=== PATIENT | female | born 1945 | race Caucasian/White ===

== ENCOUNTER → 2018-04-01 08:28 | Oncology outpatient (ONC) | payer MEDICARE, OTHER, SELFPAY ==
[2018-04-01 09:18] VITALS: BP 146/73; PULSE 66; RESP 20; TEMP 36.4; O2SAT 98
--- NOTE | 2018-04-01 09:19 | ONC.CONS ---
History of Present Illness - Data of Consult Patient: new to practice Consult date: 04/01/18 Requesting Physician: Eboni Dobson MD Primary Care Provider: MD Meryl - Consult Narrative Reason for consult: Anemia of CKD, and MGUS (IgG Lamda) Narrative: Julianna Graham is a 72 year old female with anemia of CKD and MGUS. She recently moved from [facility] to an [facility]. She was followed previously by Dr. Eboni Dobson who referred the patient to [facility] for for continued care. Patient has a known history of chronic kidney disease stage 3 with associated chronic anemia. Patient said that she has been getting Procrit injection for the past 5 years approximately and she is getting about 57462 to [address] units every month. Patient also has a history of monoclonal gammopathy of unknown significance diagnosed after bone marrow aspiration and biopsy on 12/22/2007. The bone marrow aspiration and biopsy showed 5% lambda light chain restricted plasma cells involving a normal cellular 30% bone marrow with normal hematopoiesis and normal cytogenetics. Clinically, patient reported low energy level and she said the Procrit is quite helpful. He is complaining a little neck and lower back pain. He is having epidural steroid injection for the back pain about every 3-4 months. Patient has acid reflux symptoms including burning and pain in the upper chest and is using ranitidine and Nexium with good symptomatic control. Patient denies any abdominal pain diarrhea or constipation. CC: Zeke Dobosn MD Patient reports pain?: No Home Medications and Allergies Home Medications Medication Instructions Recorded Confirmed Type acetaminophen [Tylenol] 500 mg PO Q6H PRN 04/01/18 04/01/18 History albuterol sulfate 2 puff INHALATION Q6H PRN 04/01/18 04/01/18 History amlodipine 5 mg PO DAILY 04/01/18 04/01/18 History aspirin 81 mg PO DAILY 04/01/18 04/01/18 History calcium carbonate [Calcium 600] 04/01/18 History carvedilol 25 mg PO BID 04/01/18 04/01/18 History cetirizine 10 mg PO BID 04/01/18 04/01/18 History Allergies Allergy/AdvReac Type Severity Reaction Status Date / Time cephalexin [CEPHALEXIN] Allergy Mild Unverified 08/04/17 12:32 diphenhydramine Allergy Unknown Unverified 08/04/17 12:32 [DIPHENHYDRAMINE] doxycycline [DOXYCYCLINE] Allergy Unknown Unverified 08/04/17 12:32 Rmhlmqz-Ymm-Gal Reductase Allergy Unknown Unverified 08/04/17 12:32 Inhibitor [[id number]-[id number]-WPK REDUCTASE INHIBITOR] Medical History - Medical, Surgical, Family History Medical History: Medical History (Last Updated 04/01/18 @ 09:44 by Zeke Dobson MD) Anemia in chronic kidney disease (CKD) CKD (chronic kidney disease) stage 3, GFR 30-59 ml/min History of hysterectomy Hyperlipidemia Hypertension MGUS (monoclonal gammopathy of unknown significance) Rotator cuff arthropathy of right shoulder Family History: Family History (Last Updated 04/01/18 @ 09:45 by Zeke Dobson MD) Father Bone cancer - Social History Smoking Status: Former smoker Quit Date: 04/17/08 Substance Use Type: does not use Alcohol Intake: never Review of Systems All systems PM: reviewed and no additional remarkable complaints except as stated Exam Vital signs: Last Vital Signs Temp 97.5 F L 04/01/18 09:18 Pulse 66 04/01/18 09:18 Resp 20 04/01/18 09:18 BP 146/73 H 04/01/18 09:18 Pulse Ox 98 04/01/18 09:18 ECOG 1 Narrative: Constitutional: WDWN, NAD, average body habitus, well groomed, pleasant and cooperative. HEENT: NCAT, EOMI, PERRLA, anicteric sclera, no hearing difficulty; Oral mucus membrane moist and without ulcers. Neck: Supple, symmetrical, and tracheal midline; No palpable thyromegaly and no palpable lymph nodes. Respiratory: No use of accessory muscles. Clear to auscultation, and no wheezes or rales or rubs. Cardiovascular: Regular rate and rhythm, S1 and S2 normal, no murmurs gallops or rubs. No JVD. No pitting edema of lower extremities. Abdomen: Soft, nontender, non-distended, bowel sounds normal, no palpable organomegaly, no hernia, no palpable masses. Lower extremities: No palpable pedal edema. Lymphatic: no palpable lymph nodes in the neck, axillae, or groins. Musculoskeletal: normal gait and station, no clubbing, no cyanosis, no pitting edema. Skin: no rashes, no ulcers, no petechiae Neurological: Awake and alert and oriented x3. CN II-XII grossly intact. No focal motor or sensory deficit. Psychiatric: Good judgment, good insight, normal affect, normal thought process, cooperative, no depression, no anxiety. Results - Labs Reviewed. Assessment and Plan (1) Anemia in chronic kidney disease (CKD) Assessment: I talked with the patient that I will continue the Procrit injection. Her next injection is due on 04/18/2018. I also touched base with the patient about the box warning of the injection with Procrit. I especially explained to her that if the hemoglobin level is kept too high, the injection with Procrit is associated with increased mortality, increased risk of venous thromboembolism and increased risk of progression of underlying malignancy. Patient voiced understanding and she said that nothing is without any side effects. I believe these must have already been discussed with the patient before the initiation of the treatment with Procrit. Plan: 1. Continue Procrit 30K-40K subQ monthly, goal is HGB 10-11 Next due 04/18/2018, CBC/D, CMP, MM panel, and Procrit 30K subQ if HGB < 10 2. RTC 05/16/2018 for follow up visit, CBC, and ? procrit. (2) MGUS (monoclonal gammopathy of unknown significance) Problem details: MGUS, diagnosed after BMA/Bx on 12/22/2007: 5% lambda light chain restricted plasma cells involving a normal cellular 30% bone marrow with normal hematopoiesis and normal cytogenetics. Assessment and plan: I talked with the patient that I am planning to continue to monitor the serum protein electrophoresis and serum free light chain about every 3 months. Depending on the trend of change. May consider bone marrow aspiration biopsy. (3) CKD (chronic kidney disease) stage 3, GFR 30-59 ml/min Assessment and Plan: Will refer to mold yard worker in [facility] to establish care.
--- NOTE | 2018-04-01 09:25 | P.CONONC_ITS ---
History of Present Illness - Data of Consult Patient: new to practice Consult date: 04/01/18 Requesting Physician: Eboni Dobson MD Primary Care Provider: MD Meryl - Consult Narrative Reason for consult: Anemia of CKD, and MGUS (IgG Lamda) Narrative: Julianna Graham is a 72 year old female with anemia of CKD and MGUS. She recently moved from [facility] to an [facility]. She was followed previously by Dr. Eboni Dobson who referred the patient to [facility] for for continued care. Patient has a known history of chronic kidney disease stage 3 with associated chronic anemia. Patient said that she has been getting Procrit injection for the past 5 years approximately and she is getting about 67911 to [address]94 units every month. Patient also has a history of monoclonal gammopathy of unknown significance diagnosed after bone marrow aspiration and biopsy on 12/22/2007. The bone marrow aspiration and biopsy showed 5% lambda light chain restricted plasma cells involving a normal cellular 30% bone marrow with normal hematopoiesis and normal cytogenetics. Clinically, patient reported low energy level and she said the Procrit is quite helpful. He is complaining a little neck and lower back pain. He is having epidural steroid injection for the back pain about every 3-4 months. Patient has acid reflux symptoms including burning and pain in the upper chest and is using ranitidine and Nexium with good symptomatic control. Patient denies any abdominal pain diarrhea or constipation. CC: Zeke Dobson MD Patient reports pain?: No Home Medications and Allergies Home Medications Medication Instructions Recorded Confirmed Type acetaminophen [Tylenol] 500 mg PO Q6H PRN 04/01/18 04/01/18 History albuterol sulfate 2 puff INHALATION Q6H PRN 04/01/18 04/01/18 History amlodipine 5 mg PO DAILY 04/01/18 04/01/18 History aspirin 81 mg PO DAILY 04/01/18 04/01/18 History calcium carbonate [Calcium 600] 04/01/18 History carvedilol 25 mg PO BID 04/01/18 04/01/18 History cetirizine 10 mg PO BID 04/01/18 04/01/18 History Allergies Allergy/AdvReac Type Severity Reaction Status Date / Time cephalexin [CEPHALEXIN] Allergy Mild Unverified 08/04/17 12:32 diphenhydramine Allergy Unknown Unverified 08/04/17 12:32 [DIPHENHYDRAMINE] doxycycline [DOXYCYCLINE] Allergy Unknown Unverified 08/04/17 12:32 Aomxgdy-Btr-Kvx Reductase Allergy Unknown Unverified 08/04/17 12:32 Inhibitor [TNUZNVO-KOI-EIL REDUCTASE INHIBITOR] Medical History - Medical, Surgical, Family History Medical History: Medical History (Last Updated 04/01/18 @ 09:44 by Zeke Dobson MD) Anemia in chronic kidney disease (CKD) CKD (chronic kidney disease) stage 3, GFR 30-59 ml/min History of hysterectomy Hyperlipidemia Hypertension MGUS (monoclonal gammopathy of unknown significance) Rotator cuff arthropathy of right shoulder Family History: Family History (Last Updated 04/01/18 @ 09:45 by Zeke Dobson MD) Father Bone cancer - Social History Smoking Status: Former smoker Quit Date: 04/17/08 Substance Use Type: does not use Alcohol Intake: never Review of Systems All systems PM: reviewed and no additional remarkable complaints except as stated Exam Vital signs: Last Vital Signs Temp 97.5 F L 04/01/18 09:18 Pulse 66 04/01/18 09:18 Resp 20 04/01/18 09:18 BP 146/73 H 04/01/18 09:18 Pulse Ox 98 04/01/18 09:18 ECOG 1 Narrative: Constitutional: WDWN, NAD, average body habitus, well groomed, pleasant and cooperative. HEENT: NCAT, EOMI, PERRLA, anicteric sclera, no hearing difficulty; Oral mucus membrane moist and without ulcers. Neck: Supple, symmetrical, and tracheal midline; No palpable thyromegaly and no palpable lymph nodes. Respiratory: No use of accessory muscles. Clear to auscultation, and no wheezes or rales or rubs. Cardiovascular: Regular rate and rhythm, S1 and S2 normal, no murmurs gallops or rubs. No JVD. No pitting edema of lower extremities. Abdomen: Soft, nontender, non-distended, bowel sounds normal, no palpable organomegaly, no hernia, no palpable masses. Lower extremities: No palpable pedal edema. Lymphatic: no palpable lymph nodes in the neck, axillae, or groins. Musculoskeletal: normal gait and station, no clubbing, no cyanosis, no pitting edema. Skin: no rashes, no ulcers, no petechiae Neurological: Awake and alert and oriented x3. CN II-XII grossly intact. No focal motor or sensory deficit. Psychiatric: Good judgment, good insight, normal affect, normal thought process , cooperative, no depression, no anxiety. Results - Labs Reviewed. Assessment and Plan (1) Anemia in chronic kidney disease (CKD) Assessment: I talked with the patient that I will continue the Procrit injection. Her next injection is due on 04/18/2018. I also touched base with the patient about the box warning of the injection with Procrit. I especially explained to her that if the hemoglobin level is kept too high, the injection with Procrit is associated with increased mortality, increased risk of venous thromboembolism and increased risk of progression of underlying malignancy. Patient voiced understanding and she said that nothing is without any side effects. I believe these must have already been discussed with the patient before the initiation of the treatment with Procrit. Plan: 1. Continue Procrit 30K-40K subQ monthly, goal is HGB 10-11 Next due 04/18/2018, CBC/D, CMP, MM panel, and Procrit 30K subQ if HGB < 10 2. RTC 05/16/2018 for follow up visit, CBC, and ? procrit. (2) MGUS (monoclonal gammopathy of unknown significance) Problem details: MGUS, diagnosed after BMA/Bx on 12/22/2007: 5% lambda light chain restricted plasma cells involving a normal cellular 30% bone marrow with normal hematopoiesis and normal cytogenetics. Assessment and plan: I talked with the patient that I am planning to continue to monitor the serum protein electrophoresis and serum free light chain about every 3 months. Depending on the trend of change. May consider bone marrow aspiration biopsy. (3) CKD (chronic kidney disease) stage 3, GFR 30-59 ml/min Assessment and Plan: Will refer to college basketball coach in [facility] to establish care.
== END ==
PROVIDERS: Visit Provider Internal Medicine Hematology & Oncology
DX: I12.9 Hypertensive chronic kidney disease with stage 1 through stage 4 chronic kidney disease, or unspecified chronic kidney disease (principal); N18.3 Chronic kidney disease, stage 3 (moderate); D63.1 Anemia in chronic kidney disease; D47.2 Monoclonal gammopathy; Z87.891 Personal history of nicotine dependence
CPT/HCPCS: 99204; 99214

== ENCOUNTER → 2018-04-18 09:00 | Outpatient (CLI) | payer MEDICARE, OTHER, SELFPAY ==
[2018-04-18 09:27] LABS: Add Manual Diff / Slide Review NO; Basophils Percent Auto 0.6 % (0-2); Eosinophils Percent Auto 2.8 % (2-4); Hematocrit 30.6 % (36-46); Hemoglobin 10.6 g/dL (12.0-16.0); Lymphocytes Percent Auto 19.5 % (25-40); Mean Corpuscular HGB Conc 34.5 % (30-36); Mean Corpuscular Hemoglobin 32.9 PG (26-34); Mean Corpuscular Volume 95.6 fL (80-100); Monocytes Percent Auto 7.5 % (3-14); Neutrophils Absolute Auto 5100 /uL (1500-7000); Neutrophils Percent Auto 69.6 % (50-75); Platelet Count 374 X10^3/uL (150-400); Red Cell Distribution Width 14.8 % (11.6-14.8); White Blood Cell Count 7.3 X10^3/uL (4.5-11.0)
[2018-04-18 09:38] LABS: Alanine Aminotransferase 14 IU/L (9-52); Albumin 4.5 g/dL (3.5-5.0); Albumin Globulin Ratio 1.2 (1.0-2.8); Alkaline Phosphatase 53 U/L (38-126); Aspartate Aminotransferase 23 IU/L (14-36); BUN Creatinine Ratio 20.4 (6-22); Bilirubin Total 0.3 mg/dL (0.2-1.3); Blood Urea Nitrogen 49 mg/dL (7-17); Calcium 9.9 mg/dL (8.4-10.2); Carbon Dioxide 25 mmol/L (22-32); Chloride 101 mmol/L (98-107); Estimated Glomerular Filt Rate 19.7 mL/min (>60); Globulin 3.7 g/dL (1.7-4.1); Glucose 113 mg/dL (80-110); HEMOLYSIS < 15 (0-50); Lactate Dehydrogenase 415 U/L (313-618); Potassium 3.4 mmol/L (3.4-5.1); Sodium 144 mmol/L (137-145); Total Protein 8.2 g/dL (6.3-8.2)
[2018-04-21 14:13] LABS: Free Kappa/ Lambda Ratio 0.09 (0.26-1.65); Free Lambda 376.9 mg/L (5.7-26.3)
[2018-04-21 15:22] LABS: Immunoglobulin A 86 mg/dL (81-463); Immunoglobulin G, Quantitative 1367 mg/dL (694-1618); Immunoglobulin M, Quantitative 22 mg/dL (48-271)
[2018-04-21 16:58] LABS: Beta-2-Microglobulin 7.99 mg/L (< 2.52)
[2018-04-22 10:07] LABS: Abnormal Protein Band 1 0.7 g/dL (NONE DETECTED); Albumin 4.2 g/dL (3.8-4.8); Alpha 1 Globulin 0.3 g/dL (0.2-0.3); Beta 1 Globulin 0.3 g/dL (0.4-0.6); Gamma Globulin 1.2 g/dL (0.8-1.7); Protein, Total 7.3 g/dL (6.1-8.1)
== END ==
PROVIDERS: Family Provider Nurse Practitioner Family; PCP Nurse Practitioner Family; Visit Provider Internal Medicine Hematology & Oncology
DX: D47.2 Monoclonal gammopathy (principal); N18.9 Chronic kidney disease, unspecified; D63.1 Anemia in chronic kidney disease
CPT/HCPCS: 36415; 80053; 82232; 82784; 83615; 83883; 84155; 84165; 85025

== ENCOUNTER 2018-04-21 15:14 | Emergency (ER) | payer MEDICARE, OTHER, SELFPAY ==
[2018-04-21 15:15] VITALS: BP 157/52; PULSE 66; RESP 14; TEMP 36.5; O2SAT 99; BMI 30.2
--- NOTE | 2018-04-21 15:33 | RT ---
EKG performed at [address] Negrete
--- NOTE | 2018-04-21 15:37 | DI.RAD.S_ITS ---
PROCEDURE: XR CHEST 1V INDICATIONS: chest pain TECHNIQUE: One view of the chest was acquired. COMPARISON: None. FINDINGS: Surgical changes and devices: None. Lungs and pleura: No pleural effusions or pneumothorax. Mild pulmonary vascular congestion is seen. No focal infiltrate. Mediastinum: Mediastinal contours appear normal. Heart size is enlarged. Bones and chest wall: No suspicious bony lesions. Overlying soft tissues appear unremarkable. IMPRESSION: Mild congestion. No focal infiltrate. Dictated by: Americo Hobson M.D. on 04/21/2018 at 15:48 Approved by: Americo Hobson M.D. on 04/21/2018 at 15:48
[2018-04-21 15:54] VITALS: BP 151/48; PULSE 67; RESP 14; O2SAT 98
[2018-04-21 15:58] LABS: Add Manual Diff / Slide Review NO; Basophils Percent Auto 0.8 % (0-2); Eosinophils Percent Auto 2.1 % (2-4); Hematocrit 27.7 % (36-46); Hemoglobin 9.5 g/dL (12.0-16.0); Lymphocytes Percent Auto 20.5 % (25-40); Mean Corpuscular HGB Conc 34.1 % (30-36); Mean Corpuscular Hemoglobin 32.5 PG (26-34); Mean Corpuscular Volume 95.3 fL (80-100); Monocytes Percent Auto 8.4 % (3-14); Neutrophils Absolute Auto 5300 /uL (1500-7000); Neutrophils Percent Auto 68.2 % (50-75); Platelet Count 340 X10^3/uL (150-400); Red Blood Cell Count 2.91 X10^6/uL (4.0-5.2); Red Cell Distribution Width 14.4 % (11.6-14.8); White Blood Cell Count 7.8 X10^3/uL (4.5-11.0)
[2018-04-21 16:06] LABS: Prothrombin Time 11.5 SECONDS (10.1-12.7)
[2018-04-21 16:08] LABS: PTT Partial Thromboplastin Tim 28 SECONDS (26.4-36.2)
[2018-04-21 16:10] LABS: Alanine Aminotransferase 17 IU/L (9-52); Albumin 4.3 g/dL (3.5-5.0); Albumin Globulin Ratio 1.3 (1.0-2.8); Alkaline Phosphatase 60 U/L (38-126); Aspartate Aminotransferase 23 IU/L (14-36); BUN Creatinine Ratio 21.3 (6-22); Bilirubin Total 0.2 mg/dL (0.2-1.3); Blood Urea Nitrogen 51 mg/dL (7-17); Calcium 10.3 mg/dL (8.4-10.2); Carbon Dioxide 26 mmol/L (22-32); Chloride 101 mmol/L (98-107); Creatine Kinase 35 U/L (30-135); Estimated Glomerular Filt Rate 19.7 mL/min (>60); Globulin 3.4 g/dL (1.7-4.1); Glucose 105 mg/dL (80-110); HEMOLYSIS < 15 (0-50); Lipase 103 U/L (23-300); Potassium 3.6 mmol/L (3.4-5.1); Sodium 141 mmol/L (137-145); Total Protein 7.7 g/dL (6.3-8.2)
[2018-04-21 16:22] LABS: Troponin I < 0.012 ng/mL (0.01-0.034)
--- NOTE | 2018-04-21 16:23 | DI.US.S_ITS ---
PROCEDURE: US PERIPH VENOUS LOW EXTREM LT INDICATIONS: left leg pain TECHNIQUE: Real-time imaging, as well as color and pulse Doppler interrogation, were performed of the lower extremity deep veins from the inguinal ligament to the popliteal fossa. COMPARISON: None. FINDINGS: The deep veins are normally compressible, and free of intraluminal thrombus. Color and pulse Doppler demonstrate normal phasic intraluminal flow. There is normal augmentation response to distal compression maneuver. IMPRESSION: 1. No evidence of deep venous thrombosis in the left lower extremity. Dictated by: James Comer M.D. on 04/21/2018 at 16:23 Approved by: James Comer M.D. on 04/21/2018 at 16:23
--- NOTE | 2018-04-21 16:25 | ED_ITS ---
HPI - Neck Pain/Injury General Chief Complaint: Neck Pain/Injury Stated Complaint: had abnormal EKG, neck hurts, possible heart attac Time Seen by Provider: 04/21/18 15:55 Source: patient, family () and other (Walk-in clinic) Mode of arrival: wheelchair Limitations: no limitations History of Present Illness HPI Narrative: This a 72-year-old female sent from the walk-in clinic for complaint of left neck pain. Patient states it is the left side of her neck that is all the time, does seems to be unrelated to exertion and she states she has been using the phone with packing in the been moving so she thinks it is related to that. She also mentions that her throat feels tight when she goes for a walker tries to her ear and exert herself. She states that she did have a heart attack years ago she had a catheter but no stents she thinks it was 5 or 6 years ago which she is unclear about the exact timing. She takes some medications but not all these medications because some of them did make her feel well. By her description it sounds like she had myalgias and stopped her statin. She still taking some medications for blood pressure twice daily she thinks carvedilol and amlodipine she is not sure if she is taking anything else. She also mentions aspirin 81 mg which she has been taking for about a decade. She is not really having any shortness of breath but she states it bills in her chest to bleed. Um the chest pain is more of a burning sensation in the mid chest. She does get any diaphoresis or clammy, no nausea no vomiting she sometimes has some belching. She has had some mild constipation but is having bowel movements she has had some mild edema in her lower extremities. She states her left leg has been hurting, she has a history of sciatica with pain radiating down the leg but this feels different it is typically in her buttock and back this is going farther down. She states that she has had injections in the past she has tried ibuprofen and Tylenol with minimal improvement. She states she can do stress test anymore nor can she do chemical stress test anymore because of difficulty with breathing. She has a history significant her coronary artery disease, back pain/sciatica pain. Hypertension, dyslipidemia she denies any diabetes. She is also being treated for multiple myeloma although this was not sure to later in her stay. Related Data Home Medications Medication Instructions Recorded Confirmed acetaminophen [Tylenol] 500 mg PO Q6H PRN 04/01/18 04/21/18 albuterol sulfate 2 puff INHALATION Q6H PRN 04/01/18 04/21/18 amlodipine 5 mg PO DAILY 04/01/18 04/21/18 ascorbic acid (vitamin C) [Vitamin 1,000 mg PO DAILY 04/01/18 04/21/18 C] aspirin 81 mg PO DAILY 04/01/18 04/21/18 calcium carbonate [Calcium 600] 04/01/18 04/21/18 carvedilol 25 mg PO BID 04/01/18 04/21/18 cetirizine 10 mg PO BID 04/01/18 04/21/18 chlorthalidone 12.5 mg PO DAILY 04/01/18 04/21/18 cyanocobalamin (vitamin B-12) 5,000 mcg SUBLINGUAL DAILY 04/01/18 04/21/18 [Vitamin B-12] esomeprazole magnesium [Nexium 20 mg PO DAILY 04/01/18 04/21/18 24HR] ferrous gluconate 324 mg PO DAILY 04/01/18 04/21/18 fluticasone [Flonase Allergy 04/01/18 04/21/18 Relief] hydralazine 100 mg PO BID 04/01/18 04/21/18 multivitamin 1 tab PO DAILY 04/01/18 04/21/18 ranitidine HCl [Zantac] 150 mg PO BID 04/01/18 04/21/18 tizanidine 2 mg PO TID PRN 04/01/18 04/21/18 triamcinolone acetonide 1 applic TOPICAL BID 04/01/18 04/21/18 Allergies Allergy/AdvReac Type Severity Reaction Status Date / Time Sulfa (Sulfonamide Allergy Severe Anaphylaxis Verified 04/21/18 15:23 Antibiotics) oyster extract Allergy Intermediate Hives Verified 04/21/18 15:26 salicylates Allergy Intermediate Vomiting Verified 04/21/18 15:26 shellfish derived Allergy Intermediate Vomiting Verified 04/21/18 15:26 cefazolin Allergy Mild Verified 04/21/18 15:26 cephalexin [CEPHALEXIN] Allergy Mild Verified 04/21/18 15:26 Cephalosporins Allergy Mild Nausea Verified 04/21/18 15:26 colesevelam Allergy Mild Nausea Verified 04/21/18 15:26 ketoprofen Allergy Mild Nausea Verified 04/21/18 15:26 niacin Allergy Mild Nausea Verified 04/21/18 15:26 diphenhydramine Allergy Unknown Verified 04/21/18 15:26 [DIPHENHYDRAMINE] doxycycline [DOXYCYCLINE] Allergy Unknown Verified 04/21/18 15:26 Lxxxwwu-Ulz-Avd Reductase Allergy Unknown Verified 04/21/18 15:26 Inhibitor [[id number] REDUCTASE INHIBITOR] promethazine AdvReac Intermediate Cramping Verified 04/21/18 15:26 of the Muscles Review of Systems Review of Systems All systems reviewed & are unremarkable except as noted in HPI and below Constitutional Denies chills, Denies fever(s), Denies headache(s), Denies lethargy, Denies malaise, Denies snoring and Denies weakness ENT Ears, Nose, Mouth, and Throat: Denies headache(s), Denies neck mass and Reports neck pain Cardiovascular Denies chest pain, Denies chest pain at rest, Denies chest pain with activity, Denies diaphoresis, Denies syncope, Denies pedal edema, Denies edema, Denies irregular heart rhythm, Denies lightheadedness, Denies palpitations, Denies dyspnea, Reports dyspnea on exertion and Denies orthopnea Respiratory Denies change in phlegm color, Denies chest congestion, Denies cough, Denies excessive phlegm production, Denies pain on inspiration, Denies pain with cough , Denies dyspnea, Reports dyspnea on exertion, Denies snoring, Denies stridor and Denies wheezing Gastrointestinal Gastrointestinal: Denies abdominal pain, Reports belching, Reports constipation , Denies diarrhea, Denies nausea and Denies vomiting Genitourinary Denies hematuria, Denies urinary frequency, Denies dysuria, Denies flank pain, Denies urinary incontinence and Denies urinary urgency Musculoskeletal Denies back pain, Reports limited range of motion, Reports muscle cramps and Reports neck pain Integumentary/Breasts Denies rash Neurologic Denies syncope, Denies headache(s) and Denies weakness Endocrine Denies palpitations Allergic/Immunologic Denies wheezing PFSH Medical History Anemia in chronic kidney disease (CKD) (Acute) CKD (chronic kidney disease) stage 3, GFR 30-59 ml/min (Acute) History of hysterectomy (Acute) History of hysterectomy (Acute) Hyperlipidemia (Acute) Hypertension (Acute) MGUS (monoclonal gammopathy of unknown significance) (Acute) Rotator cuff arthropathy of right shoulder (Acute) Family History Father Bone cancer Social History Smoking Status: Former smoker alcohol intake: never substance use type: does not use Exam Narrative Exam Narrative: GEN: well nourished, well appearing elderly female, alert and oriented x 3, patient appears to be in no acute distress. HEENT: Atraumatic, pupils are equal round reactive to light, extraocular movements are intact, nares are clear,Throat is clear without any exudates, erythema, tonsillar enlargement or uvular deviation, no cervical lymphadenopathy. Patient has full range of motion, very mild tenderness over the left SCM and trapezius. Patient does not have any bony tenderness. HEART: Regular rate and rhythm without murmur, clicks, rubs. No carotid bruits , pulses are equal in upper and lower extremities LUNGS:Lungs clear to auscultation, no wheezes, rales, crackles, chest moves symmetrically ABD:bowel sounds normal, soft, non-tender, no guarding, rebound, rigidity, no masses noted, no hepatosplenomegaly :No CVA tenderness MSCL: Non-tender, no muscle atrophy, full range of motion, normal gait NEURO:CN 2-12 intact, sensation normal Initial Vital Signs Initial Vital Signs: Vital Signs Temperature 97.7 F 04/21/18 15:15 Pulse Rate 66 04/21/18 15:15 Respiratory Rate 14 04/21/18 15:15 Blood Pressure 157/52 H 04/21/18 15:15 Pulse Oximetry 99 04/21/18 15:15 Course Orders Ordered: ED Orders 04/21/18 15:32 EKG-12 Lead Stat 04/21/18 15:37 XR chest 1V Stat 04/21/18 15:50 Complete Blood Count AUTO DIFF Stat Comprehensive Metabolic Panel Stat Lipase Stat Partial Thromboplastin Time Stat Prothrombin Time INR Stat Troponin & CK Cardiac Panel Stat 04/21/18 16:23 US periph venous low extrem lt Stat 04/21/18 17:45 Troponin & CK Cardiac Panel Stat 04/21/18 17:50 EKG-12 Lead Stat Vital Signs - 8 hr 04/21/18 15:15 04/21/18 15:54 04/21/18 16:33 Temperature 97.7 F Pulse Rate 66 67 67 Respiratory Rate 14 14 14 Blood Pressure 157/52 H Blood Pressure [Left Arm] 151/48 H 144/46 H Pulse Oximetry 99 98 96 04/21/18 17:10 04/21/18 18:47 Temperature Pulse Rate 63 80 Respiratory Rate 13 14 Blood Pressure Blood Pressure [Left Arm] 159/46 H 144/72 H Pulse Oximetry 96 98 MDM - Neck Pain/Injury Lab Data Attestation: I reviewed the patient's lab results. Result diagrams: 04/21/18 15:50 04/21/18 15:50 Lab Results 04/21/18 04/21/18 04/21/18 Range/Units 15:50 15:50 15:50 WBC 7.8 (4.5-11.0) X10^3/uL RBC 2.91 L (4.0-5.2) X10^6/uL Hgb 9.5 L (12.0-16.0) g/dL Hct 27.7 L (36-46) % MCV 95.3 (80-100) fL MCH 32.5 (26-34) PG MCHC 34.1 (30-36) % RDW 14.4 (11.6-14.8) % Plt Count 340 (150-400) X10^3/uL Neut % (Auto) 68.2 (50-75) % Lymph % (Auto) 20.5 L (25-40) % [place] % (Auto) 8.4 (3-14) % Eos % (Auto) 2.1 (2-4) % Baso % (Auto) 0.8 (0-2) % Neut # (Auto) 5300 (0856-9640) /uL PT 11.5 (10.1-12.7) SECONDS INR 1.0 (0.9-1.3) APTT 28 (26.4-36.2) SECONDS Sodium 141 (137-145) mmol/L Potassium 3.6 (3.4-5.1) mmol/L Chloride 101 (98-107) mmol/L Carbon Dioxide 26 (22-32) mmol/L BUN 51 H (7-17) mg/dL Creatinine 2.40 H (0.52-1.04) mg/dL Estimated GFR 19.7 L (>60) mL/min BUN/Creatinine Ratio 21.3 (6-22) Glucose 105 (80-110) mg/dL Calcium 10.3 H (8.4-10.2) mg/dL Total Bilirubin 0.2 (0.2-1.3) mg/dL AST 23 (14-36) IU/L ALT 17 (9-52) IU/L Alkaline Phosphatase 60 (38-126) U/L Total Creatine Kinase 35 (30-135) U/L CK-MB (CK-2) TNP CK-MB (CK-2) Rel Index TNP Troponin I < 0.012 (0.01-0.034) ng/mL Total Protein 7.7 (6.3-8.2) g/dL Albumin 4.3 (3.5-5.0) g/dL Globulin 3.4 (1.7-4.1) g/dL Albumin/Globulin Ratio 1.3 (1.0-2.8) Lipase 103 (23-300) U/L 04/21/ Range/Units 17:45 WBC (4.5-11.0) X10^3/uL RBC (4.0-5.2) X10^6/uL Hgb (12.0-16.0) g/dL Hct (36-46) % MCV (80-100) fL MCH (26-34) PG MCHC (30-36) % RDW (11.6-14.8) % Plt Count (150-400) X10^3/uL Neut % (Auto) (50-75) % Lymph % (Auto) (25-40) % [place] % (Auto) (3-14) % Eos % (Auto) (2-4) % Baso % (Auto) (0-2) % Neut # (Auto) (2330-8052) /uL PT (10.1-12.7) SECONDS INR (0.9-1.3) APTT (26.4-36.2) SECONDS Sodium (137-145) mmol/L Potassium (3.4-5.1) mmol/L Chloride (98-107) mmol/L Carbon Dioxide (22-32) mmol/L BUN (7-17) mg/dL Creatinine (0.52-1.04) mg/dL Estimated GFR (>60) mL/min BUN/Creatinine Ratio (6-22) Glucose (80-110) mg/dL Calcium (8.4-10.2) mg/dL Total Bilirubin (0.2-1.3) mg/dL AST (14-36) IU/L ALT (9-52) IU/L Alkaline Phosphatase (38-126) U/L Total Creatine Kinase 30 (30-135) U/L CK-MB (CK-2) TNP CK-MB (CK-2) Rel Index TNP Troponin I < 0.012 (0.01-0.034) ng/mL Total Protein (6.3-8.2) g/dL Albumin (3.5-5.0) g/dL Globulin (1.7-4.1) g/dL Albumin/Globulin Ratio (1.0-2.8) Lipase (23-300) U/L Imaging Data Chest x-ray: Radiologist's impression: Launch [place] [address] XRay Report Signed Patient: Julianna Graham MR#: [id number] : 1945 Acct:[id number] Age/Sex: 72 / F Date of Service: 04/21/18 Loc: ED Accession Number: [id number] Procedure: XR chest 1V Ordering Provider: Mara Negrete D.O. PROCEDURE: XR CHEST 1V INDICATIONS: chest pain TECHNIQUE: One view of the chest was acquired. COMPARISON: None. FINDINGS: Surgical changes and devices: None. Lungs and pleura: No pleural effusions or pneumothorax. Mild pulmonary vascular congestion is seen. No focal infiltrate. Mediastinum: Mediastinal contours appear normal. Heart size is enlarged. Bones and chest wall: No suspicious bony lesions. Overlying soft tissues appear unremarkable. IMPRESSION: Mild congestion. No focal infiltrate. Dictated by: Americo Hobson M.D. on 04/21/2018 at 15:48 Approved by: Americo Hobson M.D. on 04/21/2018 at 15:48 ECG Data Attestation: I personally reviewed and interpreted this ECG as follows: Interpretation: Rhythm with a rate of 63 P are interval of 189, [place] 96 and QTC of 418. No ST elevation patient does have some ST depression in V4 V5 and 6. No prior EKGs available for comparison. EKG 2. Shows a sinus rhythm with rate of 61 and P are interval of 193 QRS of 100 and QTC of 369. Patient also appears to have some ST depression in V4 5 and [address] elevation. Patient has prior EKG from today but unable to obtain a 2nd from patient's primary care or environmental remediation specialist. MDM Narrative Medical decision making narrative: Discussed with patient somewhat she describing could be stable angina with the tightness in her throat, we did serial troponins and EKG which did not show any elevation patient did not wish to be in the hospital or observed which was offered. The patient issues with multiple myeloma which she initially did not share, this is likely the source of her decreased hemoglobin and she gets Procrit regularly. She is due to have another shot and they held her last Um because her hemoglobin/crit was 10.6. Patient was encouraged to follow up with her oncologist and I spoke with oncology on to have patient call tomorrow. Discussed with patient there are other potential causes such as gastric or pulmonary or musculoskeletal but I am suspicious for cardiac. She states she can do stress test regular or chemical Um and she has renal dysfunction so cardiac catheterization is less likely. At this time patient does not wish to be in the hospital and wishes to return home and is asymptomatic. As she seems stable angina was recommended to continue her regular medications and follow up. We did discuss signs and symptoms and reasons to return to the ER emergently. Discharge Plan Departure Patient Disposition: Home Clinical Impression: Anemia, Neck and shoulder pain Discharge Date/Time: 04/21/18 18:54 Interventions: ED Discharge Assessment Last Done: 04/21/18 18:53 Instructions: Angina, DI for Neck Pain Activity Restrictions/Additional Instructions: Follow-up with your primary care physician or oncologist regarding your neck pain to discuss possible further evaluation for stable angina. Call tomorrow for follow up. I did discuss with your oncology team today, also discuss if you need to have your procrit shot rescheduled sooner. Continue home medications as prescribed. Return to the ER for worsening symptoms, new chest pain, shortness of breath, passing out, worsening neck or throat pain with exertion, nausea, or other new or concerning symptoms. Prescriptions: No Action acetaminophen [Tylenol] 325 mg Tablet 500 mg PO Q6H PRN (Reason: Pain (Scale Score 1-3)) RF: 0 albuterol sulfate 90 mcg/actuation Hfa Aerosol Inhaler 2 puff INHALATION Q6H PRN (Reason: Shortness Of Breath) RF: 0 amlodipine 5 mg Tablet 5 mg PO DAILY RF: 0 aspirin 81 mg Tablet,Delayed Release (Dr/Ec) 81 mg PO DAILY RF: 0 calcium carbonate [Calcium 600] 600 mg calcium (1,500 mg) Tablet RF: 0 carvedilol 25 mg Tablet 25 mg PO BID RF: 0 cetirizine 10 mg Tablet 10 mg PO BID RF: 0 chlorthalidone 25 mg Tablet 12.5 mg PO DAILY RF: 0 esomeprazole magnesium [Nexium 24HR] 20 mg Tablet,Delayed Release (Dr/Ec) 20 mg PO DAILY RF: 0 ferrous gluconate 324 mg (38 mg iron) Tablet 324 mg PO DAILY RF: 0 fluticasone [Flonase Allergy Relief] 50 mcg/actuation [place],Suspension RF: 0 hydralazine 100 mg Tablet 100 mg PO BID RF: 0 multivitamin Tablet 1 tab PO DAILY RF: 0 ranitidine HCl [Zantac] 150 mg Tablet 150 mg PO BID RF: 0 tizanidine 2 mg Tablet 2 mg PO TID PRN (Reason: Pain (Scale Score 1-3)) RF: 0 triamcinolone acetonide 0.5 % Cream 1 applic TOPICAL BID RF: 0 cyanocobalamin (vitamin B-12) [Vitamin B-12] 5,000 mcg Tablet, Sublingual 5,000 mcg SUBLINGUAL DAILY RF: 0 ascorbic acid (vitamin C) [Vitamin C] 1,000 mg Tablet 1,000 mg PO DAILY RF: 0 Referrals: Daniel Ulloa ARNP [Primary Care Provider] -
[2018-04-21 16:33] VITALS: BP 144/46; PULSE 67; RESP 14; O2SAT 96
[2018-04-21 17:10] VITALS: BP 159/46; PULSE 63; RESP 13; O2SAT 96
[2018-04-21 18:09] LABS: Creatine Kinase 30 U/L (30-135)
[2018-04-21 18:27] LABS: Troponin I < 0.012 ng/mL (0.01-0.034)
[2018-04-21 18:47] VITALS: BP 144/72; PULSE 80; RESP 14; O2SAT 98
== END 2018-04-21 18:54 | disposition home or self-care (01) ==
PROVIDERS: Emergency Provider Emergency Medicine; Family Provider Nurse Practitioner Family; PCP Nurse Practitioner Family
DX: M54.2 Cervicalgia (principal); M25.519 Pain in unspecified shoulder; D64.9 Anemia, unspecified
CPT/HCPCS: 36415; 36591; 71045; 80053; 82550; 83690; 84484; 85025; 85610; 85730; 93005; 93971; 99283; 99285

== ENCOUNTER → 2018-04-22 14:29 | Outpatient (CLI) | payer MEDICARE, OTHER, SELFPAY ==
[2018-04-22] MEDS: EPOETIN ALFA 20,000 UNIT/ML VIAL 30000 UNIT SUBCUT (15:20)
[2018-04-22 15:25] VITALS: BP 150/60; PULSE 74; RESP 18; TEMP 37; O2SAT 98
== END ==
PROVIDERS: Family Provider Nurse Practitioner Family; PCP Nurse Practitioner Family; Visit Provider Internal Medicine Hematology & Oncology
DX: I12.9 Hypertensive chronic kidney disease with stage 1 through stage 4 chronic kidney disease, or unspecified chronic kidney disease (principal); N18.3 Chronic kidney disease, stage 3 (moderate); D63.1 Anemia in chronic kidney disease; D47.2 Monoclonal gammopathy
CPT/HCPCS: 96372; J0885

== ENCOUNTER → 2018-05-19 09:00 | Outpatient (CLI) | payer MEDICARE, OTHER, SELFPAY ==
--- NOTE | 2018-05-19 09:39 | ONC.PN ---
PN -Subjective Interval history: Julianna Graham is a 72 year old female. She presents here today for scheduled follow-up visit. Patient has known history of CKD stage 3 with associated chronic anemia. She has been getting Procrit injection since around 2013. Patient also has a history of MGUS diagnosed after BMA/Bx on 12/22/2007 that showed 5% lambda light chain restricted plasma cells involving a normal cellular (30%) bone marrow with normal hematopoiesis and normal cytogenetics adn FISH studies. Today, she reports that she is still a little bit short of breath, especially when walking. 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 Cardiac catheterization was discussed. Patient is undecided yet out of concern for kidney damage. She has not seen her kidney doctor yet. She said she did not have an appointment. - Additional ROS All systems PM: reviewed and no additional remarkable complaints except as stated Home Medications and Allergies Home Medications Medication Instructions Recorded Confirmed Type acetaminophen [Tylenol] 500 mg PO Q6H PRN 04/01/18 05/19/18 History albuterol sulfate 2 puff INHALATION Q6H PRN 04/01/18 05/19/18 History amlodipine 5 mg PO DAILY 04/01/18 05/19/18 History ascorbic acid (vitamin C) [Vitamin 1,000 mg PO DAILY 04/01/18 05/19/18 History C] aspirin 81 mg PO DAILY 04/01/18 05/19/18 History carvedilol 25 mg PO BID 04/01/18 05/19/18 History cetirizine 10 mg PO BID 04/01/18 05/19/18 History chlorthalidone 12.5 mg PO DAILY 04/01/18 05/19/18 History cyanocobalamin (vitamin B-12) 5,000 mcg SUBLINGUAL DAILY 04/01/18 05/19/18 History [Vitamin B-12] esomeprazole magnesium [Nexium 20 mg PO DAILY 04/01/18 05/19/18 History 24HR] ferrous gluconate 324 mg PO DAILY 04/01/18 05/19/18 History fluticasone [Flonase Allergy 04/01/18 04/21/18 History Relief] hydralazine 100 mg PO BID 04/01/18 05/19/18 History multivitamin 1 tab PO DAILY 04/01/18 05/19/18 History ranitidine HCl [Zantac] 150 mg PO BID 04/01/18 05/19/18 History tizanidine 2 mg PO TID PRN 04/01/18 05/19/18 History triamcinolone acetonide 1 applic TOPICAL BID 04/01/18 05/19/18 History Allergies Allergy/AdvReac Type Severity Reaction Status Date / Time Sulfa (Sulfonamide Allergy Severe Anaphylaxis Verified 04/21/18 15:23 Antibiotics) oyster extract Allergy Intermediate Hives Verified 04/21/18 15:26 salicylates Allergy Intermediate Vomiting Verified 04/21/18 15:26 shellfish derived Allergy Intermediate Vomiting Verified 04/21/18 15:26 cefazolin Allergy Mild Verified 04/21/18 15:26 cephalexin [CEPHALEXIN] Allergy Mild Verified 04/21/18 15:26 Cephalosporins Allergy Mild Nausea Verified 04/21/18 15:26 colesevelam Allergy Mild Nausea Verified 04/21/18 15:26 ketoprofen Allergy Mild Nausea Verified 04/21/18 15:26 niacin Allergy Mild Nausea Verified 04/21/18 15:26 diphenhydramine Allergy Unknown Verified 04/21/18 15:26 [DIPHENHYDRAMINE] doxycycline [DOXYCYCLINE] Allergy Unknown Verified 04/21/18 15:26 Cdsomxa-Juq-Acu Reductase Allergy Unknown Verified 04/21/18 15:26 Inhibitor [RWETIGE-DKY-VGG REDUCTASE INHIBITOR] promethazine AdvReac Intermediate Cramping Verified 04/21/18 15:26 of the Muscles Exam Vital signs: Last Vital Signs Temp 98.0 F 05/19/18 09:40 Pulse 68 05/19/18 09:40 Resp 19 05/19/18 09:40 BP 139/65 05/19/18 09:40 Pulse Ox 97 05/19/18 09:40 ECOG 1 Narrative: Constitutional: WDWN, NAD, average body habitus, well groomed, pleasant and cooperative. HEENT: NCAT, EOMI, PERRLA, anicteric sclera, no hearing difficulty; Oral mucus membrane moist and without ulcers. Neck: Supple, symmetrical, and tracheal midline; No palpable thyromegaly and no palpable lymph nodes. Respiratory: No use of accessory muscles. Clear to auscultation, and no wheezes or rales or rubs. Cardiovascular: Regular rate and rhythm, S1 and S2 normal, no murmurs gallops or rubs. No JVD. No pitting edema of lower extremities. Abdomen: Soft, nontender, non-distended, bowel sounds normal, no palpable organomegaly, no hernia, no palpable masses. Lower extremities: No palpable pedal edema. Lymphatic: no palpable lymph nodes in the neck, axillae, or groins. Musculoskeletal: normal gait and station, no clubbing, no cyanosis, no pitting edema. Skin: no rashes, no ulcers, no petechiae Neurological: Awake and alert and oriented x3. CN II-XII grossly intact. No focal motor or sensory deficit. Psychiatric: Good judgment, good insight, normal affect, normal thought process, cooperative, no depression, no anxiety. Results - Labs Laboratory Last Values WBC 6.8 X10^3/uL (4.5-11.0) 05/19/18 10:09 RBC 2.98 X10^6/uL (4.0-5.2) L 05/19/18 10:09 Hgb 9.6 g/dL (12.0-16.0) L 05/19/18 10:09 Hct 28.6 % (36-46) L 05/19/18 10:09 MCV 96.1 fL (80-100) 05/19/18 10:09 MCH 32.4 PG (26-34) 05/19/18 10:09 MCHC 33.7 % (30-36) 05/19/18 10:09 RDW 14.4 % (11.6-14.8) 05/19/18 10:09 Plt Count 332 X10^3/uL (150-400) 05/19/18 10:09 Neut % (Auto) 67.1 % (50-75) 05/19/18 10:09 Lymph % (Auto) 19.7 % (25-40) L 05/19/18 10:09 [place] % (Auto) 9.1 % (3-14) 05/19/18 10:09 Eos % (Auto) 3.1 % (2-4) 05/19/18 10:09 Baso % (Auto) 1.0 % (0-2) 05/19/18 10:09 Neut # (Auto) 4500 /uL (9844-6011) 05/19/18 10:09 Lymph # (Auto) 1300 /uL (7344-0248) 05/19/18 10:09 [place] # (Auto) 600 /uL (0-900) 05/19/18 10:09 Eos # (Auto) 200 /uL (0-450) 05/19/18 10:09 Baso # (Auto) 100 /uL (0-100) 05/19/18 10:09 Assessment and Plan (1) MGUS (monoclonal gammopathy of unknown significance) Problem details: MGUS IgG [place], diagnosed after BMA/Bx on 12/22/2007: 5% lambda light chain restricted plasma cells involving a normal cellular 30% bone marrow with normal hematopoiesis and normal cytogenetics and normal FISH study. Assessment: I reviewed the serum protein electrophoresis results with the patient. Patient has an abnormal protein band 0.7 g per dL. Immunofixation reviewed that this band corresponds to IgG lambda monoclonal protein. Serum free lambda light chain has also significantly higher than normal. The ratio is abnormal. I talked with the patient that I will continue monitor the markers. If it shows a consistent upward trend, I would recommend bone marrow aspiration biopsy to evaluate if there is any evidence progression to multiple myeloma. Plan: RTC in one month, CBC, CMP, MM panel (2) Anemia in chronic kidney disease (CKD) Assessment and Plan: I talked with her again about the goal of the Procrit injection, ie. to keep the hemoglobin level between 10 and 11. Today her hemoglobin level is 9.6, and I will proceed with Procrit injection [id number] units. Patient voiced understanding. Plan: RTC in one month, CBC, CMP, Procrit if Hb < 10 (3) CKD (chronic kidney disease) stage 3, GFR 30-59 ml/min Assessment and Plan: I explained to the patient that based on the available information, patient has stage 3/4 chronic kidney disease. I will refer the patient to Nephrology for further evaluation and management.
[2018-05-19 09:40] VITALS: BP 139/65; PULSE 68; RESP 19; TEMP 36.7; O2SAT 97
[2018-05-19 10:17] LABS: Add Manual Diff / Slide Review NO; Basophils Absolute Auto 100 /uL (0-100); Eosinophils Absolute Auto 200 /uL (0-450); Eosinophils Percent Auto 3.1 % (2-4); Hematocrit 28.6 % (36-46); Hemoglobin 9.6 g/dL (12.0-16.0); Lymphocytes Absolute Auto 1300 /uL (1100-4500); Lymphocytes Percent Auto 19.7 % (25-40); Mean Corpuscular HGB Conc 33.7 % (30-36); Mean Corpuscular Hemoglobin 32.4 PG (26-34); Mean Corpuscular Volume 96.1 fL (80-100); Monocytes Absolute Auto 600 /uL (0-900); Monocytes Percent Auto 9.1 % (3-14); Neutrophils Absolute Auto 4500 /uL (1500-7000); Neutrophils Percent Auto 67.1 % (50-75); Platelet Count 332 X10^3/uL (150-400); Red Blood Cell Count 2.98 X10^6/uL (4.0-5.2); Red Cell Distribution Width 14.4 % (11.6-14.8); White Blood Cell Count 6.8 X10^3/uL (4.5-11.0)
[2018-05-19] MEDS: EPOETIN ALFA 10,000 UNIT/ML VIAL 10000 UNIT SUBCUT (11:03)
[2018-05-19] MEDS: EPOETIN ALFA 20,000 UNIT/ML VIAL 20000 UNIT SUBCUT (11:04)
== END ==
PROVIDERS: Family Provider Nurse Practitioner Family; PCP Nurse Practitioner Family; Visit Provider Internal Medicine Hematology & Oncology
DX: D47.2 Monoclonal gammopathy (principal); N18.3 Chronic kidney disease, stage 3 (moderate); D63.1 Anemia in chronic kidney disease
CPT/HCPCS: 36415; 85025; 96372; 99214; J0885